=== PATIENT | male | born 1980 | race Caucasian/White ===

== ENCOUNTER 2016-10-13 16:59 | Emergency (ER) | payer OTHER ==
[~2016-10-13] VITALS: Ht 180.3 cm; Wt 104.3 kg
[2016-10-13 17:30] VITALS: BP 156/93
[2016-10-13] MEDS ORDERED: CYCLOBENZAPRINE 10 MG TABLET. PO ONE (17:30)
[2016-10-13] MEDS ORDERED: IBUPROFEN 400 MG TABLET. PO ONE (17:30)
--- NOTE | 2016-10-13 18:07 | RAD ---
EXAM: Lumbar spine CT without contrast. HISTORY: Back pain and lower extremity radiculopathy. TECHNIQUE: Computed tomographic images of the lumbar spine were obtained without contrast. Multiplanar reformatting was performed. *One or more of the following individualized dose reduction techniques were utilized for this examination: 1. Automated exposure control. 2. Adjustment of the mA and/or kV according to patient size. 3. Use of iterative reconstruction technique. COMPARISON: None. FINDINGS: There is grade 1 anterolisthesis of L5 on S1, measuring 2 mm. There are pars interarticularis defects at this level. The vertebral bodies are normal in height. There is degenerative endplate remodeling primarily at L5-S1. There are few thoracic and lumbar endplate Schmorl's nodes. There is no suspicious lytic or sclerotic osseous lesion. At L1-L2, there is no stenosis. At L2-L3, there is a minimal disc bulge. There is no stenosis. At L3-L4, there is a minimal disc bulge. There is no stenosis. At L4-L5, there is a left paracentral disc protrusion superimposed on a mild disc bulge and endplate remodeling. There is no stenosis. At L5-S1, there is a disc bulge and anterior predominant endplate remodeling. There are bilateral pars defects with grade 1 anterolisthesis. There is minimal right foraminal stenosis with abutment of the exiting right L5 nerve root. IMPRESSION: 1. No acute osseous finding. 2. Grade 1 anterolisthesis of L5 on S1 with bilateral pars interarticularis defects. 3. Multilevel degenerative change, described above. Electronically signed by: Luh Feliz MD (10/13/2016 6:04 PM) [facility]
[2016-10-13] MEDS ORDERED: HYDR-971 PO (18:16)
[2016-10-13] MEDS ORDERED: CYCL10TA2 PO (18:16)
--- NOTE | 2016-10-13 18:17 | PHYS DOC ---
Past Medical History Past Medical History: No Pertinent History Past Surgical History: Other Additional Past Surgical Histo: left ankle Alcohol Use: None Drug Use: None Adult General Chief Complaint Chief Complaint: LOWER BACK PAIN OR INJURY HPI HPI Patient is a 36 year old [f__sex] who presents with [] Review of Systems Review of Systems Constitutional: Denies fever or chills [] Eyes: Denies change in visual acuity, redness, or eye pain [] HENT: Denies nasal congestion or sore throat [] Respiratory: Denies cough or shortness of breath [] Cardiovascular: No additional information not addressed in HPI [] GI: Denies abdominal pain, nausea, vomiting, bloody stools or diarrhea [] : Denies dysuria or hematuria [] Musculoskeletal: Denies back pain or joint pain [] Integument: Denies rash or skin lesions [] Neurologic: Denies headache, focal weakness or sensory changes [] Endocrine: Denies polyuria or polydipsia [] Current Medications Current Medications Current Medications Medications (Trade) Dose Ordered Sig/Madeline Start Time Stop Time Status Last Admin Dose Admin Cyclobenzaprine HCl (Flexeril) 10 mg 1X ONCE 10/13/16 17:30 10/13/16 17:31 DC 10/13/16 17:30 10 MG Ibuprofen (Motrin) 400 mg 1X ONCE 10/13/16 17:30 10/13/16 17:31 DC 10/13/16 17:30 400 MG Allergies Allergies Allergies Coded Allergies Type Severity Reaction Last Updated Verified No Known Drug Allergies 10/13/16 No Physical Exam Physical Exam Constitutional: Well developed, well nourished, no acute distress, non-toxic appearance. [] HENT: Normocephalic, atraumatic, bilateral external ears normal, oropharynx moist, no oral exudates, nose normal. [] Eyes: PERRLA, EOMI, conjunctiva normal, no discharge. [] Neck: Normal range of motion, no tenderness, supple, no stridor. [] Cardiovascular:Heart rate regular rhythm, no murmur [] Lungs & Thorax: Bilateral breath sounds clear to auscultation [] Abdomen: Bowel sounds normal, soft, no tenderness, no masses, no pulsatile masses. [] Skin: Warm, dry, no erythema, no rash. [] Back: No tenderness, no CVA tenderness. [] Extremities: No tenderness, no cyanosis, no clubbing, ROM intact, no edema. [] Neurologic: Alert and oriented X 3, normal motor function, normal sensory function, no focal deficits noted. [] Psychologic: Affect normal, judgement normal, mood normal. [] Current Patient Data Vital Signs Vital Signs Date Time Temp Pulse Resp B/P (MAP) Pulse Ox O2 Delivery O2 Flow Rate FiO2 10/13/16 17:30 156/93 (114) 10/13/16 17:00 98.3 85 18 97 Room Air 98.3 EKG EKG [] Radiology/Procedures Radiology/Procedures [][facility] [address] [place], [place] [id number] IMAGING REPORT Signed PATIENT: ARYA CARRANZA ACCOUNT: [id number] : 1980 LOCATION: ER AGE: 36 SEX: M EXAM STATUS: REG ER ORD. PHYSICIAN: JUSTIN ARREGUIN APRN REASON: back pain with radiation of pain down both legs PROCEDURE: CT LUMBAR SPINE WO CONTRAST EXAM: Lumbar spine CT without contrast. HISTORY: Back pain and lower extremity radiculopathy. TECHNIQUE: Computed tomographic images of the lumbar spine were obtained without contrast. Multiplanar reformatting was performed. *One or more of the following individualized dose reduction techniques were utilized for this examination: 1. Automated exposure control. 2. Adjustment of the mA and/or kV according to patient size. 3. Use of iterative reconstruction technique. COMPARISON: None. FINDINGS: There is grade 1 anterolisthesis of L5 on S1, measuring 2 mm. There are pars interarticularis defects at this level. The vertebral bodies are normal in height. There is degenerative endplate remodeling primarily at L5-S1. There are few thoracic and lumbar endplate Schmorl's nodes. There is no suspicious lytic or sclerotic osseous lesion. At L1-L2, there is no stenosis. At L2-L3, there is a minimal disc bulge. There is no stenosis. At L3-L4, there is a minimal disc bulge. There is no stenosis. At L4-L5, there is a left paracentral disc protrusion superimposed on a mild disc bulge and endplate remodeling. There is no stenosis. At L5-S1, there is a disc bulge and anterior predominant endplate remodeling. There are bilateral pars defects with grade 1 anterolisthesis. There is minimal right foraminal stenosis with abutment of the exiting right L5 nerve root. IMPRESSION: 1. No acute osseous finding. 2. Grade 1 anterolisthesis of L5 on S1 with bilateral pars interarticularis defects. 3. Multilevel degenerative change, described above. Electronically signed by: Luh Feliz MD (10/13/2016 6:04 PM) [facility] DICTATED and SIGNED BY: LUH FELIZ MD DATE: 10/13/16 0652 CC: JUSTIN ARREGUIN APRN; NO PCP; NON,STAFF ~ Course & Med Decision Making Course & Med Decision Making Pertinent Labs and Imaging studies reviewed. (See chart for details) Provided patient with CT results showing grade 1 anterior lithiasis of L5 on S1. Patient states that his pain was still remains to be the same with Flexeril 10 mg and ibuprofen 800 mg. Recommended ice packs on 20 minutes off 20 minutes several times a day. Also recommended Flexeril and ibuprofen with hydrocodone at home. He was instructed that Flexeril and hydrocodone both cause severe drowsiness do not take any be alert and oriented. Patient was provided with a work note for the next 2 days. Recommended that he follow up with his work comp doctor for further evaluation. Patient will be discharged home in stable condition signs and symptoms to return back to emergency department have been provided. [] Dragon Disclaimer Dragon Disclaimer This electronic medical record was generated, in whole or in part, using a voice recognition dictation system. Departure Departure Impression: Primary Impression: Back pain Disposition: 01 HOME, SELF-CARE Condition: STABLE Referrals: NO PCP (PCP) Patient Instructions: Back Pain, Adult, [id number] Additional Instructions: Activity as tolerated. Ibuprofen 800 mg every 8 hours with food stop taking few develop an upset stomach. Hydrocodone for severe pain and discomfort. This medication will cause drowsiness do not take any be alert and oriented. Flexeril as a muscle relaxer this medication will also cause drowsiness do not take any be alert and oriented. Ice packs on 20 minutes off 20 minutes several times a day. Follow-up with your work comp physician in the next 2-3 days. Return back to emergency prior for signs and symptoms of become worse. Scripts Cyclobenzaprine Hcl (CYCLOBENZAPRINE HCL) 10 Mg Tablet 1 TAB PO TID Y for MUSCLE SPASMS, #30 TAB Prov: JUSTIN ARREGUIN APRN 10/13/16 Hydrocodone/Apap 5-325 (NORCO 5-325 TABLET) 1 Each Tablet 1 TAB PO PRN Q6HRS Y for PAIN, #20 TAB 0 Refills Prov: JUSTIN ARREGUIN APRN 10/13/16 Problem Qualifiers Primary Impression: Back pain Back pain location: low back pain Chronicity: acute Back pain laterality: bilateral Sciatica presence: unspecified whether sciatica present Qualified Codes: M54.5 - Low back pain JUSTIN ARREGUIN APRN Oct 13, 2016 18:17
== END 2016-10-13 18:23 | disposition home or self-care (01) ==
LOC: ER 16:59
DX: M54.5 Low back pain (principal)
CPT/HCPCS: 72131; 99284-25

== ENCOUNTER 2019-08-18 16:14 | Inpatient (IN) | payer OTHER, SELFPAY ==
[~2019-08-18] VITALS: Ht 180.3 cm; Wt 97.0 kg
[~2019-08-18 16:14] MED LIST: CYCL10TA2 PO; HYDR-3164 PO
--- NOTE | 2019-08-18 17:19 | PHYS DOC ---
Past Medical History Past Medical History: No Pertinent History (CAMERON RIVERA DO) Past Surgical History: Other Additional Past Surgical Histo: left ankle (CAMERON RIVERA DO) Smoking Status: Never Smoker Alcohol Use: None Drug Use: None (CAMERON RIVERA DO) General Adult EDM: Chief Complaint: ABDOMINAL PAIN HPI: HPI: Patient is a 39 year old male who presented to ER today for evaluation of right side flank pain. Symptoms started last night, the location of the pain was in epigastric area then radiated to the right flank area. Patient tried to go to work today but he continued to have severe pain so after work he came here for evaluation. Patient did not know he had a fever. Patient denies any urinary frequency or urgency, denies any blood in his urine. Patient denies any cough or fever. Patient denies being exposed to anybody who tested positive for COVID-19. Patient denies any history of kidney stone, denies any family history of kidney stone. (CAMERON RIVERA DO) Review of Systems: Review of Systems: Constitutional: Denies fever or chills. [] Eyes: Denies change in visual acuity. [] HENT: Denies nasal congestion or sore throat. [] Respiratory: Denies cough or shortness of breath. [] Cardiovascular: Denies chest pain or edema. [] GI: Positive for right flank pain, no nausea vomiting, no diarrhea. : Denies dysuria. [] Musculoskeletal: Denies back pain or joint pain. [] Integument: Denies rash. [] Neurologic: Denies headache, focal weakness or sensory changes. [] Endocrine: Denies polyuria or polydipsia. [] Lymphatic: Denies swollen glands. [] Psychiatric: Denies depression or anxiety. [] (CAMERON RIVERA DO) Heart Score: Risk Factors: Risk Factors: DM, Current or recent (<one month) smoker, HTN, HLP, family history of CAD, obesity. Risk Scores: Score 0 - 3: 2.5% MACE over next 6 weeks - Discharge Home Score 4 - 6: 20.3% MACE over next 6 weeks - Admit for Clinical Observation Score 7 - 10: 72.7% MACE over next 6 weeks - Early Invasive Strategies (CAMERON RIVERA DO) Allergies: Allergies: Allergies Coded Allergies Type Severity Reaction Last Updated Verified No Known Drug Allergies 10/13/16 No (CAMERON RIVERA DO) Physical Exam: PE: Constitutional: Well developed, well nourished, no acute distress, non-toxic appearance. [] HENT: Normocephalic, atraumatic, bilateral external ears normal, oropharynx moist, no oral exudates, nose normal. [] Eyes: PERRLA, EOMI, conjunctiva normal, no discharge. [] Neck: Normal range of motion, no tenderness, supple, no stridor. [] Cardiovascular:Heart rate regular rhythm, no murmur [] Lungs & Thorax: Bilateral breath sounds clear to auscultation [] Abdomen: Bowel sounds normal, soft, there is RUQ and RLQ tenderness to palpation,no masses, no pulsatile masses, no guarding, no rebound. Skin: Warm, dry, no erythema, no rash. [] Back: No tenderness, there is right CVA tenderness to palpation] Extremities: No tenderness, no cyanosis, no clubbing, ROM intact, no edema. [] Neurologic: Alert and oriented X 3, normal motor function, normal sensory function, no focal deficits noted. [] Psychologic: Affect normal, judgement normal, mood normal. [] (CAMERON RIVERA DO) Current Patient Data: Labs: Laboratory Tests Test 08/18/19 17:03 08/18/19 17:20 Urine Collection Type Unknown Urine Color Yellow Urine Clarity Clear Urine pH 6.5 Urine Specific [place] 1.010 Urine Protein Negative mg/dL Urine Glucose (UA) 250 mg/dL Urine Ketones (Stick) Negative mg/dL Urine Blood Negative Urine Nitrite Negative Urine Bilirubin Negative Urine Urobilinogen Dipstick 0.2 mg/dL Urine Leukocyte Esterase Negative Urine RBC Occ /HPF Urine WBC Occ /HPF Urine Bacteria 0 /HPF White Blood Count 17.2 x10^3/uL Red Blood Count 5.21 x10^6/uL Hemoglobin 15.8 g/dL Hematocrit 45.5 % Mean Corpuscular Volume 87 fL Mean Corpuscular Hemoglobin 30 pg Mean Corpuscular Hemoglobin Concent 35 g/dL Red Cell Distribution Width 12.9 % Platelet Count 166 x10^3/uL Neutrophils (%) (Auto) 81 % Lymphocytes (%) (Auto) 8 % Monocytes (%) (Auto) 10 % Eosinophils (%) (Auto) 0 % Basophils (%) (Auto) 1 % Neutrophils # (Auto) 13.9 x10^3/uL Lymphocytes # (Auto) 1.4 x10^3/uL Monocytes # (Auto) 1.8 x10^3/uL Eosinophils # (Auto) 0.0 x10^3/uL Basophils # (Auto) 0.1 x10^3/uL Platelet Estimate Pending Prothrombin Time 14.9 SEC Prothromb Time International Ratio 1.2 Activated Partial Thromboplast Time 27 SEC Sodium Level 134 mmol/L Potassium Level 3.6 mmol/L Chloride Level 98 mmol/L Carbon Dioxide Level 23 mmol/L Anion Gap 13 Blood Urea Nitrogen 8 mg/dL Creatinine 0.9 mg/dL Estimated GFR (Cockcroft-Gault) 94.4 BUN/Creatinine Ratio 9 Glucose Level 152 mg/dL Calcium Level 9.2 mg/dL Total Bilirubin 0.6 mg/dL Aspartate Amino Transf (AST/SGOT) 27 U/L Alanine Aminotransferase (ALT/SGPT) 77 U/L Alkaline Phosphatase 109 U/L Total Protein 8.2 g/dL Albumin 3.8 g/dL Albumin/Globulin Ratio 0.9 Lipase 117 U/L Current Medications Medications (Trade) Dose Ordered Sig/Madeline Route PRN Reason Start Time Stop Time Status Last Admin Dose Admin Sodium Chloride 1,000 ml @ 1,000 mls/hr 1X ONCE IV 08/18/19 17:30 08/18/19 18:29 08/18/19 17:33 Ketorolac Tromethamine (Toradol 30mg Vial) 30 mg 1X ONCE IVP 08/18/19 17:30 08/18/19 17:31 DC 08/18/19 17:36 Acetaminophen (Tylenol) 1,000 mg 1X ONCE PO 08/18/19 17:30 08/18/19 17:31 DC 08/18/19 17:35 (CAMERON RIVERA DO) EKG: EKG: [] (CAMERON RIVERA DO) Radiology/Procedures: Radiology/Procedures: [] (CAMERON RIVERA DO) Radiology/Procedures: IMAGING REPORT Signed PATIENT: ARYA CARRANZA ACCOUNT: [id number] : 1980 LOCATION: ER AGE: 39 SEX: M EXAM STATUS: REG ER ORD. PHYSICIAN: CAMERON RIVERA DO REASON: right side abdominal pain since yesterday PROCEDURE: CT ABD PELV W/ IV CONTRST ONLY CT abdomen and pelvis with contrast PQRS statement: CT scans at this facility use dose reduction including either automated exposure control, iterative reconstructions, and /or weight based radiation dosing via mA and kV modification when appropriate to reduce radiation dose to as low as reasonably achievable. HISTORY: Right-sided abdominal pain. TECHNIQUE: 75 mL Omnipaque 300 intravenous contrast. Abdomen findings: Lung bases unremarkable. Chronic bilateral L5 spondylolysis. Liver, gallbladder, spleen, adrenal glands, pancreas, kidneys unremarkable. There is mild bilateral renal pelviectasis. No bowel obstruction. There is mild distention and stasis of the distal ileum likely focal ileus given the surrounding inflammation about the cecum and terminal ileum from appendicitis. There is an acute appendicitis with retrocecal inflamed appendix with a diameter of 14 mm with wall thickening and extensive surrounding edema, no abscess or pneumoperitoneum to suggest perforation although there may be increased risk of perforation given the extensive inflammatory phlegmonous edema present along the right paracolic gutter. No adenopathy. Pelvis findings: No fluid or adenopathy. Bladder, prostate, rectum and bones are unremarkable. 1 cm bone cyst left acetabulum. IMPRESSION: Retrocecal acute appendicitis as described above. Electronically signed by: Rubén Juárez MD (08/18/2019 6:30 PM) [facility] DICTATED and SIGNED BY: RUBÉN JUÁREZ MD DATE: 08/18/191829 Impression: 39 yo M pmh daily alcohol (no h/o withdrawal tremors/seizures) resents to the ED with upper abdominal pain now localized to his right upper back associated nausea, vomiting, was unaware he was febrile today. White count is 17. CT scan showing 14 mm retrocecal acute appendicitis. Last ate around 1:00 this afternoon. Spoke with general surgeon Dr. Muñiz who recommends n.p.o. at midnight, antibiotics adn admit to hospitalist. Patient with no PMD, takes no routine medications. Patient stable and agrees with this plan. Accepted by Dr. Aquino. ([facility]) Course & Med Decision Making: Course & Med Decision Making Pertinent Labs and Imaging studies reviewed. (See chart for details) Patient is a 39-year-old male who presented to ER today for evaluation of right abdominal pain, patient was found to have fever temperature of 100.7 degrees in the ER, on examination pain, patient was tender to palpation on the right upper quadrant and right lower quadrant area, no rebound, no guarding. His white blood cell count elevated, his UA did not show evidence of UTI or pyelonephritis, will obtain CT scan of his abdomen pelvis with IV contrast to evaluate for appendicitis. Will give patient first dose of IV ZOSYN while awaiting for CT SCAN. Patient's care was endorsed to Dr. Jolene Hampton at 6 pm, shift change. She will follow up on CT scan of his abdomen/pelvis, she will make final disposition accordingly. (CAMERON RIVERA DO) Dragon Disclaimer: Dragon Disclaimer: This electronic medical record was generated, in whole or in part, using a voice recognition dictation system. (CAMERON RIVERA DO) Departure Departure Impression: Primary Impression: Abdominal pain Additional Impressions: Acute appendicitis Sepsis Disposition: ADMITTED INPATIENT Admitting Physician: ANNA MARIE (JOLENE HAMPTON DO) Condition: GUARDED Referrals: NO PCP (PCP) Justicifation of Admission Dx: Justifications for Admission: Justification of Admission Dx: N/A (CAMERON RIVERA DO) Justification of Admission Dx: Yes Comments: sepsis with acute appendicitis (JOLENE HAMPTON DO) CAMERON RIVERA DO Aug 18, 2019 17:19 JOLENE HAMPTON DO Aug 18, 2019 19:17
[2019-08-18] MEDS ORDERED: IV NORMAL SALINE 1000ML BAG 1,000 ML IV ONE (17:30)
[2019-08-18] MEDS ORDERED: ACETAMINOPHEN 500 MG TABLET PO ONE (17:30)
[2019-08-18] MEDS ORDERED: KETOROLAC 30 MG/ML VIAL. IVP ONE (17:30)
[2019-08-18 17:32] LABS: BASO # 0.1 x10^3/uL (0.0-0.2); BASO % 1 % (0-3); EOS % 0 % (0-3); HEMATOCRIT 45.5 % (39.0-53.0); HEMOGLOBIN 15.8 g/dL (13.0-17.5); LYMPH # 1.4 x10^3/uL (1.0-4.8); LYMPH % 8 % (24-48); MEAN CORPUSCULAR HEMOGLOBIN 30 pg (25-35); MEAN CORPUSCULAR HGB CONC 35 g/dL (31-37); MEAN CORPUSCULAR VOLUME 87 fL (79-100); MONO # 1.8 x10^3/uL (0.0-1.1); MONO % 10 % (0-9); NEUT # 13.9 x10^3/uL (1.8-7.7); NEUT % 81 % (31-73); PLATELET COUNT 166 x10^3/uL (140-400); RED BLOOD COUNT 5.21 x10^6/uL (4.30-5.70); RED CELL DISTRIBUTION WIDTH 12.9 % (11.5-14.5); WHITE BLOOD COUNT 17.2 x10^3/uL (4.0-11.0)
[2019-08-18 17:38] LABS: CALCIUM 9.2 mg/dL (8.5-10.1); CREATININE 0.9 mg/dL (0.7-1.3); GFR 94.4; POTASSIUM 3.6 mmol/L (3.5-5.1)
[2019-08-18 17:38] LABS: BILIRUBIN,URINE NEGATIVE (NEG); CLARITY,URINE CLEAR; COLOR,URINE YELLOW; NITRITE,URINE NEGATIVE (NEG); PH,URINE 6.5 (<5.0-8.0); PROTEIN,URINE NEGATIVE (NEG-TRACE); UROBILINOGEN,URINE 0.2 mg/dL (0.2 mg/dL)
[2019-08-18 17:42] LABS: PROTHROMBIN TIME PATIENT 14.9 SEC (11.7-14.0)
[2019-08-18 17:44] LABS: ALBUMIN 3.8 g/dL (3.4-5.0); ALBUMIN/GLOBULIN RATIO 0.9 (1.0-1.7); TOTAL BILIRUBIN 0.6 mg/dL (0.2-1.0); TOTAL PROTEIN 8.2 g/dL (6.4-8.2)
[2019-08-18 17:50] LABS: BACTERIA,URINE 0 /HPF (0-FEW); RBC,URINE OCC /HPF (0-2); WBC,URINE OCC /HPF (0-4)
[2019-08-18 17:57] LABS: % BANDS 3 % (0-9); % LYMPHS 8 % (24-48); % MONOS 9 % (0-10); % SEGS 80 % (35-66); PLT ESTIMATE ADEQUATE (ADEQUATE)
[2019-08-18] MEDS ORDERED: PIPERACILLIN/TAZOBACTAM 3.375 GM in IV NORMAL SALINE 50ML 50 ML IV ONE (18:30)
[2019-08-18] MEDS ORDERED: IOHEXOL 300 MG/ML 100ML VIAL. IV ONE (18:30)
--- NOTE | 2019-08-18 18:33 | RAD ---
CT abdomen and pelvis with contrast PQRS statement: CT scans at this facility use dose reduction including either automated exposure control, iterative reconstructions, and /or weight based radiation dosing via mA and kV modification when appropriate to reduce radiation dose to as low as reasonably achievable. HISTORY: Right-sided abdominal pain. TECHNIQUE: 75 mL Omnipaque 300 intravenous contrast. Abdomen findings: Lung bases unremarkable. Chronic bilateral L5 spondylolysis. Liver, gallbladder, spleen, adrenal glands, pancreas, kidneys unremarkable. There is mild bilateral renal pelviectasis. No bowel obstruction. There is mild distention and stasis of the distal ileum likely focal ileus given the surrounding inflammation about the cecum and terminal ileum from appendicitis. There is an acute appendicitis with retrocecal inflamed appendix with a diameter of 14 mm with wall thickening and extensive surrounding edema, no abscess or pneumoperitoneum to suggest perforation although there may be increased risk of perforation given the extensive inflammatory phlegmonous edema present along the right paracolic gutter. No adenopathy. Pelvis findings: No fluid or adenopathy. Bladder, prostate, rectum and bones are unremarkable. 1 cm bone cyst left acetabulum. IMPRESSION: Retrocecal acute appendicitis as described above. Electronically signed by: Bola Juárez MD (08/18/2019 6:30 PM) [facility]
[2019-08-18 23:05] VITALS: BP 141/82
[2019-08-19] VITALS (14 sets, daily range): BP systolic 112–151; BP diastolic 54–89
[2019-08-19] MEDS ORDERED: ONDANSETRON PF 4 MG/2 ML VIAL. IVP PRN
[2019-08-19] MEDS ORDERED: PIP/TAZO PER PHARMACY MC PRN
[2019-08-19] MEDS ORDERED: MORPHINE SULFATE 4 MG/ML VIAL. IV PRN
--- NOTE | 2019-08-19 00:30 | NUR ---
ADMIT NOTE The patient, ARYA CARRANZA, 39 y/o, M admitted by WILY LINDER III, DO, was given written information regarding hospital policies, unit procedures and contact persons. Patient A&O, afebrile, VSS and no c/o pain upon admission to unit. Patient admit packet reviewed and plan of care discussed. Patient orientated to unit and all belongings checked and left in room at time of admission. MD notified of admission and orders received. Patient now in bed, call light within reach, bed in lowest/locked position, and no other needs voiced at this time.
[2019-08-19] MEDS: PIPERACILLIN/TAZOBACTAM 3.375 GM in IV NORMAL SALINE 50ML 50 ML IV SCH ×5 (01:33→23:41)
--- NOTE | 2019-08-19 07:57 | NUR ---
Incorrect time stamp, charted wrong Addendum: 08/19/19 at 0758 by MIKAEL PARTIDA RN Amended: Links added.
[2019-08-19] MEDS ORDERED: IV RINGERS,LACTATED 1000ML 1,000 ML IV SCH (09:23)
[2019-08-19] MEDS ORDERED: PROCHLORPERAZINE 10 MG/2 ML VIAL. IV PRN (09:30)
[2019-08-19] MEDS ORDERED: fentaNYL PF VIAL 100 MCG/2 ML VIAL IV PRN ×2 (09:30)
[2019-08-19] MEDS ORDERED: HYDROmorphone 2 MG/ML VIAL IV PRN (09:30)
[2019-08-19] MEDS ORDERED: MORPHINE SULFATE 2 MG/ML VIAL. IV PRN ×2 (09:30)
--- NOTE | 2019-08-19 10:02 | PDOC2 ---
CONSULT Date of Consult Date of Consult DATE: 08/19/19 TIME: 09:59 Reason for Consult Reason for Consult: Acute appendicitis Referring Physician Referring Physician: Kenia Identification/Chief Complaint Chief Complaint Right lower quadrant abdominal pain Source Source: Chart review, Patient History of Present Illness Reason for Visit: 39-year-old male developed right lower quadrant abdominal pain some nausea of fevers yesterday was evaluated emergency department CT scan showed signs consistent with acute appendicitis. Past Medical History Cardiovascular: No pertinent hx Pulmonary: No pertinent hx GI: No pertinent hx Heme/Onc: No pertinent hx Hepatobiliary: No pertinent hx Psych: No pertinent hx Rheumatologic: No pertinent hx Infectious disease: No pertinent hx ENT: No pertinent hx Renal/: No pertinent hx Endocrine: No pertinent hx Dermatology: No pertinent hx Past Surgical History Past Surgical History: Other (Knee surgery) Family History Family History: No Significant Social History No ALCOHOL: rare Drugs: None Lives: with Family Current Problem List Problem List Problems Medical Problems: (1) Abdominal pain Status: Acute (2) Acute appendicitis Status: Acute (3) Sepsis Status: Acute Current Medications Current Medications Current Medications Sodium Chloride 1,000 ml @ 1,000 mls/hr 1X ONCE IV Last administered on 08/18/19at 17:33; Start 08/18/19 at 17:30; Stop 08/18/19 at 18:29; Status DC Ketorolac Tromethamine (Toradol 30mg Vial) 30 mg 1X ONCE IVP Last administered on 08/18/19at 17:36; Start 08/18/19 at 17:30; Stop 08/18/19 at 17:31; Status DC Acetaminophen (Tylenol) 1,000 mg 1X ONCE PO Last administered on 08/18/19at 17:35; Start 08/18/19 at 17:30; Stop 08/18/19 at 17:31; Status DC Iohexol (Omnipaque 300 Mg/ml) 75 ml 1X ONCE IV Last administered on 08/18/19at 18:16; Start 08/18/19 at 18:30; Stop 08/18/19 at 18:31; Status DC Piperacillin Sod/ Tazobactam Sod 3.375 gm/Sodium Chloride 50 ml @ 100 mls/hr 1X ONCE IV Last administered on 08/18/19at 18:50; Start 08/18/19 at 18:30; Stop 08/18/19 at 18:59; Status DC Piperacillin Sod/ Tazobactam Sod (Zosyn Per Pharmacy) 1 each PRN DAILY PRN [facility] SEE COMMENTS; Start 08/19/19 at 00:00 Ondansetron HCl (Zofran) 4 mg PRN Q6HRS PRN IVP NAUSEA/VOMITING 1ST CHOICE; Start 08/19/19 at 00:00 Morphine Sulfate (Morphine Sulfate) 2 mg PRN Q2HR PRN IV MODERATE PAIN 4-6; Start 08/19/19 at 00:00 Morphine Sulfate (Morphine Sulfate) 4 mg PRN Q2HR PRN IV SEVERE PAIN 7-10; S tart 08/19/19 at 00:00 Piperacillin Sod/ Tazobactam Sod 3.375 gm/Sodium Chloride 50 ml @ 100 mls/hr Q6HRS IV Last administered on 08/19/19at 06:45; Start 08/19/19 at 01:00 Fentanyl Citrate (Fentanyl 2ml Vial) 25 mcg PRN Q5MIN PRN IV MILD PAIN 1-3; Start 08/19/19 at 09:30; Stop 08/19/19 at 20:00 Fentanyl Citrate (Fentanyl 2ml Vial) 50 mcg PRN Q5MIN PRN IV MODERATE TO SEVERE PAIN; Start 08/19/19 at 09:30; Stop 08/19/19 at 20:00 Morphine Sulfate (Morphine Sulfate) 1 mg PRN Q10MIN PRN IV SEVERE PAIN 7-10; Start 08/19/19 at 09:30; Stop 08/19/19 at 20:00 Ringer's Solution 1,000 ml @ 30 mls/hr Q24H IV ; Start 08/19/19 at 09:23; Stop 08/19/19 at 21:22 Hydromorphone HCl (Dilaudid) 0.5 mg PRN Q10MIN PRN IV SEV PAIN, Second choice; Start 08/19/19 at 09:30; Stop 08/19/19 at 20:00 Prochlorperazine Edisylate (Compazine) 5 mg PACU PRN PRN IV NAUSEA, MRX1; Start 08/19/19 at 09:30; Stop 08/19/19 at 20:00 Active Scripts Active Cyclobenzaprine Hcl 10 Mg Tablet 1 Tab PO TID PRN [place] 5-325 Tablet (Acetaminophen/Hydrocodone Bitart) 1 Each Tablet 1 Tab PO PRN Q6HRS PRN Allergies Allergies: Coded Allergies: No Known Drug Allergies (Unverified , 10/13/16) ROS Gastrointestinal: Yes Nausea, Yes Abdominal Pain Physical Exam General: Alert, Oriented X3, Cooperative, mild distress HEENT: Atraumatic Lungs: Clear to auscultation, Normal air movement Heart: Regular rate, No murmurs Abdomen: Normal bowel sounds, Soft, Other (Tender palpation right lower quadrant) Extremities: No edema Skin: No significant lesion Neuro: Normal speech Psych/Mental Status: Mental status NL Vitals VITALS Vital Signs Date Time Temp Pulse Resp B/P (MAP) Pulse Ox O2 Delivery O2 Flow Rate FiO2 08/19/19 07:00 98.6 85 18 133/78 (96) 95 Room Air 98.6 Labs Labs Laboratory Tests Test 08/18/19 17:03 08/18/19 17:20 Urine Collection Type Unknown Urine Color Yellow Urine Clarity Clear Urine pH 6.5 (<5.0-8.0) Urine Specific [place] 1.010 (1.000-1.030) Urine Protein Negative mg/dL (NEG-TRACE) Urine Glucose (UA) 250 mg/dL (NEG) Urine Ketones (Stick) Negative mg/dL (NEG) Urine Blood Negative (NEG) Urine Nitrite Negative (NEG) Urine Bilirubin Negative (NEG) Urine Urobilinogen Dipstick 0.2 mg/dL (0.2 mg/dL) Urine Leukocyte Esterase Negative (NEG) Urine RBC Occ /HPF (0-2) Urine WBC Occ /HPF (0-4) Urine Bacteria 0 /HPF (0-FEW) White Blood Count 17.2 x10^3/uL (4.0-11.0) Red Blood Count 5.21 x10^6/uL (4.30-5.70) Hemoglobin 15.8 g/dL (13.0-17.5) Hematocrit 45.5 % (39.0-53.0) Mean Corpuscular Volume 87 fL (79-100) Mean Corpuscular Hemoglobin 30 pg (25-35) Mean Corpuscular Hemoglobin Concent 35 g/dL (31-37) Red Cell Distribution Width 12.9 % (11.5-14.5) Platelet Count 166 x10^3/uL (140-400) Neutrophils (%) (Auto) 81 % (31-73) Lymphocytes (%) (Auto) 8 % (24-48) Monocytes (%) (Auto) 10 % (0-9) Eosinophils (%) (Auto) 0 % (0-3) Basophils (%) (Auto) 1 % (0-3) Neutrophils # (Auto) 13.9 x10^3/uL (1.8-7.7) Lymphocytes # (Auto) 1.4 x10^3/uL (1.0-4.8) Monocytes # (Auto) 1.8 x10^3/uL (0.0-1.1) Eosinophils # (Auto) 0.0 x10^3/uL (0.0-0.7) Basophils # (Auto) 0.1 x10^3/uL (0.0-0.2) Segmented Neutrophils % 80 % (35-66) Band Neutrophils % 3 % (0-9) Lymphocytes % 8 % (24-48) Monocytes % 9 % (0-10) Platelet Estimate Adequate (ADEQUATE) Prothrombin Time 14.9 SEC (11.7-14.0) Prothromb Time International Ratio 1.2 (0.8-1.1) Activated Partial Thromboplast Time 27 SEC (24-38) Sodium Level 134 mmol/L (136-145) Potassium Level 3.6 mmol/L (3.5-5.1) Chloride Level 98 mmol/L (98-107) Carbon Dioxide Level 23 mmol/L (21-32) Anion Gap 13 (6-14) Blood Urea Nitrogen 8 mg/dL (8-26) Creatinine 0.9 mg/dL (0.7-1.3) Estimated GFR (Cockcroft-Gault) 94.4 BUN/Creatinine Ratio 9 (6-20) Glucose Level 152 mg/dL (70-99) Calcium Level 9.2 mg/dL (8.5-10.1) Total Bilirubin 0.6 mg/dL (0.2-1.0) Aspartate Amino Transf (AST/SGOT) 27 U/L (15-37) Alanine Aminotransferase (ALT/SGPT) 77 U/L (16-63) Alkaline Phosphatase 109 U/L (46-116) Total Protein 8.2 g/dL (6.4-8.2) Albumin 3.8 g/dL (3.4-5.0) Albumin/Globulin Ratio 0.9 (1.0-1.7) Lipase 117 U/L (73-393) Laboratory Tests Test 08/18/19 17:03 08/18/19 17:20 Urine Collection Type Unknown Urine Color Yellow Urine Clarity Clear Urine pH 6.5 (<5.0-8.0) Urine Specific [place] 1.010 (1.000-1.030) Urine Protein Negative mg/dL (NEG-TRACE) Urine Glucose (UA) 250 mg/dL (NEG) Urine Ketones (Stick) Negative mg/dL (NEG) Urine Blood Negative (NEG) Urine Nitrite Negative (NEG) Urine Bilirubin Negative (NEG) Urine Urobilinogen Dipstick 0.2 mg/dL (0.2 mg/dL) Urine Leukocyte Esterase Negative (NEG) Urine RBC Occ /HPF (0-2) Urine WBC Occ /HPF (0-4) Urine Bacteria 0 /HPF (0-FEW) White Blood Count 17.2 x10^3/uL (4.0-11.0) Red Blood Count 5.21 x10^6/uL (4.30-5.70) Hemoglobin 15.8 g/dL (13.0-17.5) Hematocrit 45.5 % (39.0-53.0) Mean Corpuscular Volume 87 fL (79-100) Mean Corpuscular Hemoglobin 30 pg (25-35) Mean Corpuscular Hemoglobin Concent 35 g/dL (31-37) Red Cell Distribution Width 12.9 % (11.5-14.5) Platelet Count 166 x10^3/uL (140-400) Neutrophils (%) (Auto) 81 % (31-73) Lymphocytes (%) (Auto) 8 % (24-48) Monocytes (%) (Auto) 10 % (0-9) Eosinophils (%) (Auto) 0 % (0-3) Basophils (%) (Auto) 1 % (0-3) Neutrophils # (Auto) 13.9 x10^3/uL (1.8-7.7) Lymphocytes # (Auto) 1.4 x10^3/uL (1.0-4.8) Monocytes # (Auto) 1.8 x10^3/uL (0.0-1.1) Eosinophils # (Auto) 0.0 x10^3/uL (0.0-0.7) Basophils # (Auto) 0.1 x10^3/uL (0.0-0.2) Segmented Neutrophils % 80 % (35-66) Band Neutrophils % 3 % (0-9) Lymphocytes % 8 % (24-48) Monocytes % 9 % (0-10) Platelet Estimate Adequate (ADEQUATE) Prothrombin Time 14.9 SEC (11.7-14.0) Prothromb Time International Ratio 1.2 (0.8-1.1) Activated Partial Thromboplast Time 27 SEC (24-38) Sodium Level 134 mmol/L (136-145) Potassium Level 3.6 mmol/L (3.5-5.1) Chloride Level 98 mmol/L (98-107) Carbon Dioxide Level 23 mmol/L (21-32) Anion Gap 13 (6-14) Blood Urea Nitrogen 8 mg/dL (8-26) Creatinine 0.9 mg/dL (0.7-1.3) Estimated GFR (Cockcroft-Gault) 94.4 BUN/Creatinine Ratio 9 (6-20) Glucose Level 152 mg/dL (70-99) Calcium Level 9.2 mg/dL (8.5-10.1) Total Bilirubin 0.6 mg/dL (0.2-1.0) Aspartate Amino Transf (AST/SGOT) 27 U/L (15-37) Alanine Aminotransferase (ALT/SGPT) 77 U/L (16-63) Alkaline Phosphatase 109 U/L (46-116) Total Protein 8.2 g/dL (6.4-8.2) Albumin 3.8 g/dL (3.4-5.0) Albumin/Globulin Ratio 0.9 (1.0-1.7) Lipase 117 U/L (73-393) Assessment/Plan Assessment/Plan Acute appendicitis plan laparoscopic appendectomy today pending COVID status ASYA HOPKINS MD Aug 19, 2019 10:02
--- NOTE | 2019-08-19 13:17 | PDOC1 ---
History and Physical Date of Admission Date of Admission DATE: 08/19/19 TIME: 13:17 History of Present Illness History of Present Illness Mr. Tavera, is a 39 year old male admti with acute right side flank pain. pain began last night, the location of the pain was in epigastric area then radiated to the right flank area. could not work today imaging consistent with acute appy gen surg consult, plan OR today COVID test pending Past Medical History Cardiovascular: No pertinent hx Pulmonary: No pertinent hx GI: No pertinent hx Heme/Onc: No pertinent hx Hepatobiliary: No pertinent hx Psych: No pertinent hx Rheumatologic: No pertinent hx Infectious disease: No pertinent hx ENT: No pertinent hx Renal/: No pertinent hx Endocrine: No pertinent hx Dermatology: No pertinent hx Past Surgical History Past Surgical History: Other (Knee surgery) Family History Family History: No Significant Social History Smoke: No ALCOHOL: heavy (6 beers per day) Drugs: None Current Problem List Problem List Problems Medical Problems: (1) Abdominal pain Status: Acute (2) Acute appendicitis Status: Acute (3) Sepsis Status: Acute Current Medications Current Medications Current Medications Sodium Chloride 1,000 ml @ 1,000 mls/hr 1X ONCE IV Last administered on 08/18/19at 17:33; Start 08/18/19 at 17:30; Stop 08/18/19 at 18:29; Status DC Ketorolac Tromethamine (Toradol 30mg Vial) 30 mg 1X ONCE IVP Last administered on 08/18/19at 17:36; Start 08/18/19 at 17:30; Stop 08/18/19 at 17:31; Status DC Acetaminophen (Tylenol) 1,000 mg 1X ONCE PO Last administered on 08/18/19at 17:35; Start 08/18/19 at 17:30; Stop 08/18/19 at 17:31; Status DC Iohexol (Omnipaque 300 Mg/ml) 75 ml 1X ONCE IV Last administered on 08/18/19at 18:16; Start 08/18/19 at 18:30; Stop 08/18/19 at 18:31; Status DC Piperacillin Sod/ Tazobactam Sod 3.375 gm/Sodium Chloride 50 ml @ 100 mls/hr 1X ONCE IV Last administered on 08/18/19at 18:50; Start 08/18/19 at 18:30; Stop 08/18/19 at 18:59; Status DC Piperacillin Sod/ Tazobactam Sod (Zosyn Per Pharmacy) 1 each PRN DAILY PRN [facility] SEE COMMENTS; Start 08/19/19 at 00:00 Ondansetron HCl (Zofran) 4 mg PRN Q6HRS PRN IVP NAUSEA/VOMITING 1ST CHOICE; Start 08/19/19 at 00:00 Morphine Sulfate (Morphine Sulfate) 2 mg PRN Q2HR PRN IV MODERATE PAIN 4-6; Start 08/19/19 at 00:00 Morphine Sulfate (Morphine Sulfate) 4 mg PRN Q2HR PRN IV SEVERE PAIN 7-10; Start 08/19/19 at 00:00 Piperacillin Sod/ Tazobactam Sod 3.375 gm/Sodium Chloride 50 ml @ 100 mls/hr Q6HRS IV Last administered on 08/19/19at 12:00; Start 08/19/19 at 01:00 Fentanyl Citrate (Fentanyl 2ml Vial) 25 mcg PRN Q5MIN PRN IV MILD PAIN 1-3; Start 08/19/19 at 09:30; Stop 08/19/19 at 20:00 Fentanyl Citrate (Fentanyl 2ml Vial) 50 mcg PRN Q5MIN PRN IV MODERATE TO SEVERE PAIN; Start 08/19/19 at 09:30; Stop 08/19/19 at 20:00 Morphine Sulfate (Morphine Sulfate) 1 mg PRN Q10MIN PRN IV SEVERE PAIN 7-10; Start 08/19/19 at 09:30; Stop 08/19/19 at 20:00 Ringer's Solution 1,000 ml @ 30 mls/hr Q24H IV ; Start 08/19/19 at 09:23; Stop 08/19/19 at 21:22 Hydromorphone HCl (Dilaudid) 0.5 mg PRN Q10MIN PRN IV SEV PAIN, Second choice; Start 08/19/19 at 09:30; Stop 08/19/19 at 20:00 Prochlorperazine Edisylate (Compazine) 5 mg PACU PRN PRN IV NAUSEA, MRX1; Start 08/19/19 at 09:30; Stop 08/19/19 at 20:00 Active Scripts Active Cyclobenzaprine Hcl 10 Mg Tablet 1 Tab PO TID PRN [place] 5-325 Tablet (Acetaminophen/Hydrocodone Bitart) 1 Each Tablet 1 Tab PO PRN Q6HRS PRN Allergies Allergies: Coded Allergies: No Known Drug Allergies (Unverified , 08/19/19) ROS General: No: Chills, Night Sweats, Fatigue, Malaise, Appetite, Other PSYCHOLOGICAL ROS: No: Anxiety, Behavioral Disorder, Concentration difficultie, Decreased libido, Depression, Disorientation, Hallucinations, Hostility, Irritablity, Memory difficulties, Mood Swings, Obsessive thoughts, Physical abuse, Sexual abuse, Sleep disturbances, Suicidal ideation, Other Eyes: No Blurry vision, No Decreased vision, No Double vision, No Dry eyes, No Excessive tearing, No Eye Pain, No Itchy Eyes, No Loss of vision, No Photophobia, No Scotomata, No Uses contacts, No Uses glasses, No Other HEENT: No: Heacaches, Visual Changes, Hearing change, Nasal congestion, Nasal discharge, Oral lesions, Sinus pain, Sore Throat, Epistaxis, Sneezing, Snoring, Tinnitus, Vertigo, Vocal changes, Other Respiratory: No: Cough, Hemoptysis, Orthopnea, Pleuritic Pain, Shortness of breath, SOB with excertion, Sputum Changes, Stridor, Tachypnea, Wheezing, Other Cardiovascular: No Chest Pain, No Palpitations, No Orthopnea, No Paroxysmal Noc. Dyspnea, No Edema, No Lt Headedness, No Other Gastrointestinal: Yes Nausea, Yes Abdominal Pain; No Vomiting, No Diarrhea, No Constipation, No Melena, No Hematochezia, No Other Genitourinary: No Dysuria, No Frequency, No Incontinence, No Hematuria, No Retention, No Discharge, No Urgency, No Pain, No Flank Pain, No Other, No , No , No , No , No , No , No Musculoskeletal: Yes Joint Stiffness; No Gait Disturbance, No Joint Pain, No Joint Swelling, No Muscle Pain, No Muscular Weakness, No Pain In:, No Swelling In:, No Other Neurological: No Behavorial Changes, No Bowel/Bladder ControlChng, No Confusion, No Dizziness, No Gait Disturbance, No Headaches, No Impaired Coord/balance, No Memory Loss, No Numbness/Tingling, No Seizures, No Speech Problems, No Tremors, No Visual Changes, No Weakness, No Other Skin: No Dry Skin, No Eczema, No Hair Changes, No Lumps, No Mole Changes, No Mottling, No Nail Changes, No Pruritus, No Rash, No Skin Lesion Changes, No Other, No Acne Physical Exam General: Alert, Cooperative, mild distress HEENT: EOMI, Mucous membr. moist/pink Lungs: Clear to auscultation Heart: S1S2, no murmurs Abdomen: Other (tender) Rectal Exam: not examined Neuro: Normal gait, Sensation intact Psych/Mental Status: Mood NL Vitals Vitals Vital Signs Date Time Temp Pulse Resp B/P (MAP) Pulse Ox O2 Delivery O2 Flow Rate FiO2 08/19/19 11:00 98.9 85 18 142/85 (104) 96 Room Air 98.9 Labs Labs Laboratory Tests Test 08/18/19 17:03 08/18/19 17:20 Urine Collection Type Unknown Urine Color Yellow Urine Clarity Clear Urine pH 6.5 (<5.0-8.0) Urine Specific [place] 1.010 (1.000-1.030) Urine Protein Negative mg/dL (NEG-TRACE) Urine Glucose (UA) 250 mg/dL (NEG) Urine Ketones (Stick) Negative mg/dL (NEG) Urine Blood Negative (NEG) Urine Nitrite Negative (NEG) Urine Bilirubin Negative (NEG) Urine Urobilinogen Dipstick 0.2 mg/dL (0.2 mg/dL) Urine Leukocyte Esterase Negative (NEG) Urine RBC Occ /HPF (0-2) Urine WBC Occ /HPF (0-4) Urine Bacteria 0 /HPF (0-FEW) White Blood Count 17.2 x10^3/uL (4.0-11.0) Red Blood Count 5.21 x10^6/uL (4.30-5.70) Hemoglobin 15.8 g/dL (13.0-17.5) Hematocrit 45.5 % (39.0-53.0) Mean Corpuscular Volume 87 fL (79-100) Mean Corpuscular Hemoglobin 30 pg (25-35) Mean Corpuscular Hemoglobin Concent 35 g/dL (31-37) Red Cell Distribution Width 12.9 % (11.5-14.5) Platelet Count 166 x10^3/uL (140-400) Neutrophils (%) (Auto) 81 % (31-73) Lymphocytes (%) (Auto) 8 % (24-48) Monocytes (%) (Auto) 10 % (0-9) Eosinophils (%) (Auto) 0 % (0-3) Basophils (%) (Auto) 1 % (0-3) Neutrophils # (Auto) 13.9 x10^3/uL (1.8-7.7) Lymphocytes # (Auto) 1.4 x10^3/uL (1.0-4.8) Monocytes # (Auto) 1.8 x10^3/uL (0.0-1.1) Eosinophils # (Auto) 0.0 x10^3/uL (0.0-0.7) Basophils # (Auto) 0.1 x10^3/uL (0.0-0.2) Segmented Neutrophils % 80 % (35-66) Band Neutrophils % 3 % (0-9) Lymphocytes % 8 % (24-48) Monocytes % 9 % (0-10) Platelet Estimate Adequate (ADEQUATE) Prothrombin Time 14.9 SEC (11.7-14.0) Prothromb Time International Ratio 1.2 (0.8-1.1) Activated Partial Thromboplast Time 27 SEC (24-38) Sodium Level 134 mmol/L (136-145) Potassium Level 3.6 mmol/L (3.5-5.1) Chloride Level 98 mmol/L (98-107) Carbon Dioxide Level 23 mmol/L (21-32) Anion Gap 13 (6-14) Blood Urea Nitrogen 8 mg/dL (8-26) Creatinine 0.9 mg/dL (0.7-1.3) Estimated GFR (Cockcroft-Gault) 94.4 BUN/Creatinine Ratio 9 (6-20) Glucose Level 152 mg/dL (70-99) Calcium Level 9.2 mg/dL (8.5-10.1) Total Bilirubin 0.6 mg/dL (0.2-1.0) Aspartate Amino Transf (AST/SGOT) 27 U/L (15-37) Alanine Aminotransferase (ALT/SGPT) 77 U/L (16-63) Alkaline Phosphatase 109 U/L (46-116) Total Protein 8.2 g/dL (6.4-8.2) Albumin 3.8 g/dL (3.4-5.0) Albumin/Globulin Ratio 0.9 (1.0-1.7) Lipase 117 U/L (73-393) Laboratory Tests Test 08/18/19 17:03 08/18/19 17:20 Urine Collection Type Unknown Urine Color Yellow Urine Clarity Clear Urine pH 6.5 (<5.0-8.0) Urine Specific [place] 1.010 (1.000-1.030) Urine Protein Negative mg/dL (NEG-TRACE) Urine Glucose (UA) 250 mg/dL (NEG) Urine Ketones (Stick) Negative mg/dL (NEG) Urine Blood Negative (NEG) Urine Nitrite Negative (NEG) Urine Bilirubin Negative (NEG) Urine Urobilinogen Dipstick 0.2 mg/dL (0.2 mg/dL) Urine Leukocyte Esterase Negative (NEG) Urine RBC Occ /HPF (0-2) Urine WBC Occ /HPF (0-4) Urine Bacteria 0 /HPF (0-FEW) White Blood Count 17.2 x10^3/uL (4.0-11.0) Red Blood Count 5.21 x10^6/uL (4.30-5.70) Hemoglobin 15.8 g/dL (13.0-17.5) Hematocrit 45.5 % (39.0-53.0) Mean Corpuscular Volume 87 fL (79-100) Mean Corpuscular Hemoglobin 30 pg (25-35) Mean Corpuscular Hemoglobin Concent 35 g/dL (31-37) Red Cell Distribution Width 12.9 % (11.5-14.5) Platelet Count 166 x10^3/uL (140-400) Neutrophils (%) (Auto) 81 % (31-73) Lymphocytes (%) (Auto) 8 % (24-48) Monocytes (%) (Auto) 10 % (0-9) Eosinophils (%) (Auto) 0 % (0-3) Basophils (%) (Auto) 1 % (0-3) Neutrophils # (Auto) 13.9 x10^3/uL (1.8-7.7) Lymphocytes # (Auto) 1.4 x10^3/uL (1.0-4.8) Monocytes # (Auto) 1.8 x10^3/uL (0.0-1.1) Eosinophils # (Auto) 0.0 x10^3/uL (0.0-0.7) Basophils # (Auto) 0.1 x10^3/uL (0.0-0.2) Segmented Neutrophils % 80 % (35-66) Band Neutrophils % 3 % (0-9) Lymphocytes % 8 % (24-48) Monocytes % 9 % (0-10) Platelet Estimate Adequate (ADEQUATE) Prothrombin Time 14.9 SEC (11.7-14.0) Prothromb Time International Ratio 1.2 (0.8-1.1) Activated Partial Thromboplast Time 27 SEC (24-38) Sodium Level 134 mmol/L (136-145) Potassium Level 3.6 mmol/L (3.5-5.1) Chloride Level 98 mmol/L (98-107) Carbon Dioxide Level 23 mmol/L (21-32) Anion Gap 13 (6-14) Blood Urea Nitrogen 8 mg/dL (8-26) Creatinine 0.9 mg/dL (0.7-1.3) Estimated GFR (Cockcroft-Gault) 94.4 BUN/Creatinine Ratio 9 (6-20) Glucose Level 152 mg/dL (70-99) Calcium Level 9.2 mg/dL (8.5-10.1) Total Bilirubin 0.6 mg/dL (0.2-1.0) Aspartate Amino Transf (AST/SGOT) 27 U/L (15-37) Alanine Aminotransferase (ALT/SGPT) 77 U/L (16-63) Alkaline Phosphatase 109 U/L (46-116) Total Protein 8.2 g/dL (6.4-8.2) Albumin 3.8 g/dL (3.4-5.0) Albumin/Globulin Ratio 0.9 (1.0-1.7) Lipase 117 U/L (73-393) VTE Prophylaxis Ordered VTE Prophylaxis Devices: No VTE Pharmacological Prophylaxi: No Assessment/Plan Assessment/Plan acute abd pain leukocytosis and tachycardia, give IV abd, SIRS, sepsis appendicitis to OR today pain OK Justicifation of Admission Dx: Justifications for Admission: Justification of Admission Dx: Yes GEN PIERRE MD Aug 19, 2019 13:17
[2019-08-19] MEDS ORDERED: PROPOFOL 10 MG/ML (20ML) VIAL. IV ONE (15:18)
[2019-08-19] MEDS ORDERED: DEXAMETHASONE SOD PHOS 4 MG/ML VIAL ONE (15:18)
[2019-08-19] MEDS ORDERED: SUCCINYLCHOLINE 200 MG/10 ML VIAL. ONE (15:18)
[2019-08-19] MEDS ORDERED: fentaNYL PF VIAL 100 MCG/2 ML VIAL ONE ×2 (15:18→16:41)
[2019-08-19] MEDS ORDERED: ROCURONIUM 50 MG/5 ML VIAL. ONE (15:18)
[2019-08-19] MEDS ORDERED: LIDOCAINE 2% PF 5 ML VIAL. ONE (15:18)
[2019-08-19] MEDS ORDERED: ONDANSETRON PF 4 MG/2 ML VIAL. ONE (15:18)
[2019-08-19] MEDS ORDERED: BUPIVACAINE-EPI 0.5%-1:200000 MPF 30 ML VIAL. ONE (15:24)
[2019-08-19] MEDS ORDERED: KETOROLAC 30 MG/ML VIAL. ONE (16:23)
[2019-08-19] MEDS ORDERED: NEOSTIGMINE METHYLSULFATE 5 MG/5 ML SYRINGE. ONE (16:24)
[2019-08-19] MEDS ORDERED: GLYCOPYRROLATE 1 MG/5 ML VIAL. ONE (16:24)
[2019-08-19] MEDS ORDERED: SEVOFLURANE 61 TO 120 MINUTES. IH ONE (16:55)
--- NOTE | 2019-08-19 17:04 | PDOC4 ---
Operative Note Operative Note Date: August 19, 2019 at 1701 Preoperative diagnosis: Acute appendicitis Postoperative diagnosis: Same Procedure: Laparoscopic appendectomy Surgeon: Antonino Specimen: Appendix Dictation: Patient is a 39-year-old male whose had right lower quadrant abdominal pain for about [address] scan showing signs consistent with acute appendicitis without abscess or perforation. Seizure of laparoscopic appendectomy was explained to the patient detail was benefits were also discussed including bleeding infection injury to intra-abdominal contents possibly necessitating further or open operations alternatives to this procedure also discussed with the patient who seemed to understand and gave both verbal and written consent to have procedure performed. Patient was taken to the operating room placed in supine position general anesthesia was initiated once patient was sleeping intubated his abdomen was prepped and draped usual sterile fashion using ChloraPrep. An area just below the umbilicus was injected with quarter percent Marcaine with epinephrine incision was made 11 blade scalpel and a varies needle was placed within the abdomen creating pneumoperitoneum once this was complete a 12 mm port was placed and a 5 mm camera's placed within the abdomen which was inspected and showed a necrotic appendix along the right gutter retrocecally a 5 mm port was then placed low in the midline in the pelvis and one in the right midabdomen. The appendix was grasped freed up from its attachments bluntly a window was propagated at the base the appendix to the mesoappendix with a [place] instrument this allowed for the Endo ZACK stapler to staple and transect the base the appendix the appendix was quite a densely adherent to the retrocecal portion of the colon was unable to fire a stapler across the mesoappendix I used a 10 mm clip marketing agent placed a clip and transected the mesoappendix along the full length of the mesoappendix freeing up the appendix which was then placed in Endo Catch bag removed from the umbilicus the right lateral abdomen was irrigated and suctioned dry down into the pelvis hemostasis deemed to be appropriate and the pneumoperitoneum was reduced all ports were removed the fascial defect at the umbilicus was closed with a [id number] Vicryl suture and the skin was reapproximated all port sites for subcuticular Monocryl Mastisol Steri-Strips and island dressings were applied. Patient was awakened and extubated in the operating room taken to recovery in stable condition all sponge instrument needle counts listed as correct estimated blood loss 30 mL. ASYA HOPKINS MD Aug 19, 2019 17:04
[2019-08-19] MEDS ORDERED: oxyCODONE/APAP 5/325 1 TAB TABLET PO PRN (17:15)
[2019-08-20 03:00] VITALS: BP 149/81
[2019-08-20 04:26] LABS: BASO % 0 % (0-3); EOS % 0 % (0-3); HEMATOCRIT 42.4 % (39.0-53.0); HEMOGLOBIN 14.3 g/dL (13.0-17.5); LYMPH # 1.3 x10^3/uL (1.0-4.8); LYMPH % 8 % (24-48); MEAN CORPUSCULAR HEMOGLOBIN 30 pg (25-35); MEAN CORPUSCULAR HGB CONC 34 g/dL (31-37); MEAN CORPUSCULAR VOLUME 89 fL (79-100); MONO # 1.4 x10^3/uL (0.0-1.1); MONO % 9 % (0-9); NEUT # 12.9 x10^3/uL (1.8-7.7); NEUT % 83 % (31-73); PLATELET COUNT 172 x10^3/uL (140-400); RED BLOOD COUNT 4.75 x10^6/uL (4.30-5.70); RED CELL DISTRIBUTION WIDTH 13.2 % (11.5-14.5); WHITE BLOOD COUNT 15.5 x10^3/uL (4.0-11.0)
[2019-08-20] MEDS: PIPERACILLIN/TAZOBACTAM 3.375 GM in IV NORMAL SALINE 50ML 50 ML IV SCH (06:02)
[2019-08-20 07:00] VITALS: BP 139/74
--- NOTE | 2019-08-20 09:24 | PDOC ---
SURGICAL PROGRESS NOTE Subjective Patient states he is feeling well minimal pain is tolerated diet Vital Signs Vital Signs Date Time Temp Pulse Resp B/P (MAP) Pulse Ox O2 Delivery O2 Flow Rate FiO2 08/20/19 07:00 98.3 74 16 139/74 (95) 94 Room Air 98.3 08/19/19 17:25 8 I&O Intake and Output 08/20/19 07:00 Intake Total 1550 ml Output Total 210 ml Balance 1340 ml Intake Oral 200 ml IV Total 1350 ml Output Urine Total 200 ml Estimated Blood Loss 10 ml # Voids 2 PATIENT HAS A BLACKWELL: No General: Alert, Oriented X3, Cooperative, No acute distress Abdomen: Normal bowel sounds, Soft, Other (Mild incisional tenderness wounds clean dry and intact) Labs Laboratory Tests Test 08/18/19 17:03 08/18/19 17:20 08/18/19 17:22 08/20/19 03:05 Urine Collection Type Unknown Urine Color Yellow Urine Clarity Clear Urine pH 6.5 (<5.0-8.0) Urine Specific [place] 1.010 (1.000-1.030) Urine Protein Negative mg/dL (NEG-TRACE) Urine Glucose (UA) 250 mg/dL (NEG) Urine Ketones (Stick) Negative mg/dL (NEG) Urine Blood Negative (NEG) Urine Nitrite Negative (NEG) Urine Bilirubin Negative (NEG) Urine Urobilinogen Dipstick 0.2 mg/dL (0.2 mg/dL) Urine Leukocyte Esterase Negative (NEG) Urine RBC Occ /HPF (0-2) Urine WBC Occ /HPF (0-4) Urine Bacteria 0 /HPF (0-FEW) White Blood Count 17.2 x10^3/uL (4.0-11.0) 15.5 x10^3/uL (4.0-11.0) Red Blood Count 5.21 x10^6/uL (4.30-5.70) 4.75 x10^6/uL (4.30-5.70) Hemoglobin 15.8 g/dL (13.0-17.5) 14.3 g/dL (13.0-17.5) Hematocrit 45.5 % (39.0-53.0) 42.4 % (39.0-53.0) Mean Corpuscular Volume 87 fL (79-100) 89 fL (79-100) Mean Corpuscular Hemoglobin 30 pg (25-35) 30 pg (25-35) Mean Corpuscular Hemoglobin Concent 35 g/dL (31-37) 34 g/dL (31-37) Red Cell Distribution Width 12.9 % (11.5-14.5) 13.2 % (11.5-14.5) Platelet Count 166 x10^3/uL (140-400) 172 x10^3/uL (140-400) Neutrophils (%) (Auto) 81 % (31-73) 83 % (31-73) Lymphocytes (%) (Auto) 8 % (24-48) 8 % (24-48) Monocytes (%) (Auto) 10 % (0-9) 9 % (0-9) Eosinophils (%) (Auto) 0 % (0-3) 0 % (0-3) Basophils (%) (Auto) 1 % (0-3) 0 % (0-3) Neutrophils # (Auto) 13.9 x10^3/uL (1.8-7.7) 12.9 x10^3/uL (1.8-7.7) Lymphocytes # (Auto) 1.4 x10^3/uL (1.0-4.8) 1.3 x10^3/uL (1.0-4.8) Monocytes # (Auto) 1.8 x10^3/uL (0.0-1.1) 1.4 x10^3/uL (0.0-1.1) Eosinophils # (Auto) 0.0 x10^3/uL (0.0-0.7) 0.0 x10^3/uL (0.0-0.7) Basophils # (Auto) 0.1 x10^3/uL (0.0-0.2) 0.0 x10^3/uL (0.0-0.2) Segmented Neutrophils % 80 % (35-66) Band Neutrophils % 3 % (0-9) Lymphocytes % 8 % (24-48) Monocytes % 9 % (0-10) Platelet Estimate Adequate (ADEQUATE) Prothrombin Time 14.9 SEC (11.7-14.0) Prothromb Time International Ratio 1.2 (0.8-1.1) Activated Partial Thromboplast Time 27 SEC (24-38) Sodium Level 134 mmol/L (136-145) Potassium Level 3.6 mmol/L (3.5-5.1) Chloride Level 98 mmol/L (98-107) Carbon Dioxide Level 23 mmol/L (21-32) Anion Gap 13 (6-14) Blood Urea Nitrogen 8 mg/dL (8-26) Creatinine 0.9 mg/dL (0.7-1.3) Estimated GFR (Cockcroft-Gault) 94.4 BUN/Creatinine Ratio 9 (6-20) Glucose Level 152 mg/dL (70-99) Calcium Level 9.2 mg/dL (8.5-10.1) Total Bilirubin 0.6 mg/dL (0.2-1.0) Aspartate Amino Transf (AST/SGOT) 27 U/L (15-37) Alanine Aminotransferase (ALT/SGPT) 77 U/L (16-63) Alkaline Phosphatase 109 U/L (46-116) Total Protein 8.2 g/dL (6.4-8.2) Albumin 3.8 g/dL (3.4-5.0) Albumin/Globulin Ratio 0.9 (1.0-1.7) Lipase 117 U/L (73-393) Coronavirus (COVID-19)(PCR) Negative (NEGATIVE) Laboratory Tests Test 08/20/19 03:05 White Blood Count 15.5 x10^3/uL (4.0-11.0) Red Blood Count 4.75 x10^6/uL (4.30-5.70) Hemoglobin 14.3 g/dL (13.0-17.5) Hematocrit 42.4 % (39.0-53.0) Mean Corpuscular Volume 89 fL (79-100) Mean Corpuscular Hemoglobin 30 pg (25-35) Mean Corpuscular Hemoglobin Concent 34 g/dL (31-37) Red Cell Distribution Width 13.2 % (11.5-14.5) Platelet Count 172 x10^3/uL (140-400) Neutrophils (%) (Auto) 83 % (31-73) Lymphocytes (%) (Auto) 8 % (24-48) Monocytes (%) (Auto) 9 % (0-9) Eosinophils (%) (Auto) 0 % (0-3) Basophils (%) (Auto) 0 % (0-3) Neutrophils # (Auto) 12.9 x10^3/uL (1.8-7.7) Lymphocytes # (Auto) 1.3 x10^3/uL (1.0-4.8) Monocytes # (Auto) 1.4 x10^3/uL (0.0-1.1) Eosinophils # (Auto) 0.0 x10^3/uL (0.0-0.7) Basophils # (Auto) 0.0 x10^3/uL (0.0-0.2) Problem List Problems Medical Problems: (1) Abdominal pain Status: Acute (2) Acute appendicitis Status: Acute (3) Sepsis Status: Acute Assessment/Plan Status post laparoscopic appendectomy patient wants to go home White count 15.5 we will send home with Augmentin 875 twice daily Follow-up Dr. Hopkins in 2 weeks Justicifation of Admission Dx: Justifications for Admission: Justification of Admission Dx: Yes ASYA HOPKINS MD Aug 20, 2019 09:24
[2019-08-20] MEDS ORDERED: HYDR-3164 PO (09:53)
[2019-08-20] MEDS ORDERED: AMOX1TAB61 PO (09:53)
--- NOTE | 2019-08-20 09:58 | PDOC3 ---
Discharge Summary Visit Information Date of Admission: Aug 19, 2019 Date of Discharge: Aug 20, 2019 Final Diagnosis acute abd pain sepsis appendicitis s/p lap appy on 08/18 Problems Medical Problems: (1) Abdominal pain Status: Acute (2) Acute appendicitis Status: Acute (3) Sepsis Status: Acute Brief Hospital Course Allergies Allergies Coded Allergies Type Severity Reaction Last Updated Verified No Known Drug Allergies 08/19/19 No Vital Signs Vital Signs Date Time Temp Pulse Resp B/P (MAP) Pulse Ox O2 Delivery O2 Flow Rate FiO2 08/20/19 07:00 98.3 74 16 139/74 (95) 94 Room Air 98.3 08/19/19 17:25 8 Lab Results Laboratory Tests Test 08/18/19 17:03 08/18/19 17:20 08/18/19 17:22 08/20/19 03:05 Urine Collection Type Unknown Urine Color Yellow Urine Clarity Clear Urine pH 6.5 (<5.0-8.0) Urine Specific [place] 1.010 (1.000-1.030) Urine Protein Negative mg/dL (NEG-TRACE) Urine Glucose (UA) 250 mg/dL (NEG) Urine Ketones (Stick) Negative mg/dL (NEG) Urine Blood Negative (NEG) Urine Nitrite Negative (NEG) Urine Bilirubin Negative (NEG) Urine Urobilinogen Dipstick 0.2 mg/dL (0.2 mg/dL) Urine Leukocyte Esterase Negative (NEG) Urine RBC Occ /HPF (0-2) Urine WBC Occ /HPF (0-4) Urine Bacteria 0 /HPF (0-FEW) White Blood Count 17.2 x10^3/uL (4.0-11.0) 15.5 x10^3/uL (4.0-11.0) Red Blood Count 5.21 x10^6/uL (4.30-5.70) 4.75 x10^6/uL (4.30-5.70) Hemoglobin 15.8 g/dL (13.0-17.5) 14.3 g/dL (13.0-17.5) Hematocrit 45.5 % (39.0-53.0) 42.4 % (39.0-53.0) Mean Corpuscular Volume 87 fL (79-100) 89 fL (79-100) Mean Corpuscular Hemoglobin 30 pg (25-35) 30 pg (25-35) Mean Corpuscular Hemoglobin Concent 35 g/dL (31-37) 34 g/dL (31-37) Red Cell Distribution Width 12.9 % (11.5-14.5) 13.2 % (11.5-14.5) Platelet Count 166 x10^3/uL (140-400) 172 x10^3/uL (140-400) Neutrophils (%) (Auto) 81 % (31-73) 83 % (31-73) Lymphocytes (%) (Auto) 8 % (24-48) 8 % (24-48) Monocytes (%) (Auto) 10 % (0-9) 9 % (0-9) Eosinophils (%) (Auto) 0 % (0-3) 0 % (0-3) Basophils (%) (Auto) 1 % (0-3) 0 % (0-3) Neutrophils # (Auto) 13.9 x10^3/uL (1.8-7.7) 12.9 x10^3/uL (1.8-7.7) Lymphocytes # (Auto) 1.4 x10^3/uL (1.0-4.8) 1.3 x10^3/uL (1.0-4.8) Monocytes # (Auto) 1.8 x10^3/uL (0.0-1.1) 1.4 x10^3/uL (0.0-1.1) Eosinophils # (Auto) 0.0 x10^3/uL (0.0-0.7) 0.0 x10^3/uL (0.0-0.7) Basophils # (Auto) 0.1 x10^3/uL (0.0-0.2) 0.0 x10^3/uL (0.0-0.2) Segmented Neutrophils % 80 % (35-66) Band Neutrophils % 3 % (0-9) Lymphocytes % 8 % (24-48) Monocytes % 9 % (0-10) Platelet Estimate Adequate (ADEQUATE) Prothrombin Time 14.9 SEC (11.7-14.0) Prothromb Time International Ratio 1.2 (0.8-1.1) Activated Partial Thromboplast Time 27 SEC (24-38) Sodium Level 134 mmol/L (136-145) Potassium Level 3.6 mmol/L (3.5-5.1) Chloride Level 98 mmol/L (98-107) Carbon Dioxide Level 23 mmol/L (21-32) Anion Gap 13 (6-14) Blood Urea Nitrogen 8 mg/dL (8-26) Creatinine 0.9 mg/dL (0.7-1.3) Estimated GFR (Cockcroft-Gault) 94.4 BUN/Creatinine Ratio 9 (6-20) Glucose Level 152 mg/dL (70-99) Calcium Level 9.2 mg/dL (8.5-10.1) Total Bilirubin 0.6 mg/dL (0.2-1.0) Aspartate Amino Transf (AST/SGOT) 27 U/L (15-37) Alanine Aminotransferase (ALT/SGPT) 77 U/L (16-63) Alkaline Phosphatase 109 U/L (46-116) Total Protein 8.2 g/dL (6.4-8.2) Albumin 3.8 g/dL (3.4-5.0) Albumin/Globulin Ratio 0.9 (1.0-1.7) Lipase 117 U/L (73-393) Coronavirus (COVID-19)(PCR) Negative (NEGATIVE) Laboratory Tests Test 08/20/19 03:05 White Blood Count 15.5 x10^3/uL (4.0-11.0) Red Blood Count 4.75 x10^6/uL (4.30-5.70) Hemoglobin 14.3 g/dL (13.0-17.5) Hematocrit 42.4 % (39.0-53.0) Mean Corpuscular Volume 89 fL (79-100) Mean Corpuscular Hemoglobin 30 pg (25-35) Mean Corpuscular Hemoglobin Concent 34 g/dL (31-37) Red Cell Distribution Width 13.2 % (11.5-14.5) Platelet Count 172 x10^3/uL (140-400) Neutrophils (%) (Auto) 83 % (31-73) Lymphocytes (%) (Auto) 8 % (24-48) Monocytes (%) (Auto) 9 % (0-9) Eosinophils (%) (Auto) 0 % (0-3) Basophils (%) (Auto) 0 % (0-3) Neutrophils # (Auto) 12.9 x10^3/uL (1.8-7.7) Lymphocytes # (Auto) 1.3 x10^3/uL (1.0-4.8) Monocytes # (Auto) 1.4 x10^3/uL (0.0-1.1) Eosinophils # (Auto) 0.0 x10^3/uL (0.0-0.7) Basophils # (Auto) 0.0 x10^3/uL (0.0-0.2) Brief Hospital Course Mr. Tavera is a 39 old male, admit with acute abd pain, RLQ pain, imaging consistent, tachycardia, leukocytosis surg, inflammed area, Abx given, will cont for one week Discharge Information Condition at Discharge: Improved Follow Up: Weeks Disposition/Orders: D/C to Home Scheduled Amoxicillin/Potassium Clav (Augmentin 875-125 Tablet) 1 Each Tablet, 1 TAB PO BID for infection for 7 Days, #14 Ref 0 Prescribed by: GEN PIERRE on 08/20/19 0953 Scheduled PRN Hydrocodone/Apap 5-325 ([place] 5-325 Tablet) 1 Each Tablet, 1 TAB PO PRN Q6HRS PRN for PAIN, #12 Ref 0 Prescribed by: GEN PIERRE on 08/20/19 0955 Discontinued Medications Cyclobenzaprine Hcl (Cyclobenzaprine Hcl) 10 Mg Tablet, 1 TAB PO TID PRN for MUSCLE SPASMS, #30 Prescribed by: JUSTIN ARREGUIN APRN on 10/13/16 1816 Patient Instructions Patient Instructions seen face to face probably less than 30 minutes total today e script sent, no prior narc script Justicifation of Admission Dx: Justifications for Admission: Justification of Admission Dx: Yes GEN PIERRE MD Aug 20, 2019 09:58
--- NOTE | 2019-08-20 11:32 | NUR ---
patient discharged at approximately 1112. Patient verbalized understanding of discharge instructions. Patient ambulated to spouses private vehicle with RN.
--- NOTE | 2019-08-23 18:06 | PATHOLOGY ---
[facility] Accession Number: [id number] . 01 Material submitted: . appendix - APPENDIX . 01 Clinical history: . Acute appendicitis, septic . 02 Diagnosis: Appendix, laparoscopic appendectomy: - Acute hemorrhagic and necrotizing appendicitis with serosal exudate. . ([facility]:mm; 08/23/2019) [facility] 08/23/2019 1543 Local . 02 Comment: There is no evidence of rupture. . ([facility]:mm; 08/23/2019) . 02 Electronically signed: . Jarrett Flaherty MD, Pathologist NPI- [id number] . 01 Gross description: . The specimen is received in formalin, labeled "Dajuan Tavera, appendix" and consists of an appendix measuring 5.3 cm in length and up to 1.2 cm in diameter with mesoappendix measuring 1.4 cm thick. The serosa is aranda-valencia and ragged with serosal exudate. The margin is closed with a line of issa and inked black. Sectioning reveals a dilated lumen and hemorrhagic and necrotic cut surface with fibrous obliteration of the distal tip. [employer] sections are submitted in A1. ([facility]; 08/22/2019) SYU/SYU 08/23/2019 1541 Local . 02 Pathologist provided ICD-10: K35.80 . 02 CPT . 843423 Specimen Comment: A courtesy copy of this report has been sent to [phone] Specimen Comment: Report sent to Performed at: 01 [facility] [address], [place] [id number] MD Adrian Montemayor MD Phone: [phone] Performed at: 02 [facility] [address], [place] [id number] MD Jarrett Flaherty MD Phone: [phone]
== END 2019-08-20 11:05 | disposition home or self-care (01) | DRG 854 ==
LOC: ER 16:14 → 4 NORTH 19:35
PROVIDERS: ADMIT Internal Medicine; ATTEND Internal Medicine
PROC: 0DTJ4ZZ Resection of Appendix, Percutaneous Endoscopic Approach (ICD-10-PCS; principal; 2019-08-19 13:00)
DX: A41.9 Sepsis, unspecified organism (principal); K35.80 Unspecified acute appendicitis; Z20.828 Contact with and (suspected) exposure to other viral communicable diseases
CPT/HCPCS: 36415; 74177; 80053; 81001; 83690; 85007; 85025; 85610; 85730; 87040; 88304; 96361; 96365; 96375; J0330; J1100; J1885; J2405; J2543; J2704; J2710; J3010; J3490; J7030; J7120; Q9967; 99285-25; G0378; U0003-CS